=== PATIENT | male | born 1950 | race Caucasian/White ===

== ENCOUNTER 2024-10-25 13:18 | Emergency (ER) | payer SELFPAY | END 2024-10-25 17:46 | LOC: ERS 13:18 | DX: S09.90XA Unspecified injury of head, initial encounter (principal); I10 Essential (primary) hypertension; E78.5 Hyperlipidemia, unspecified; Z86.73 Personal history of transient ischemic attack (TIA), and cerebral infarction without residual deficits; Z79.899 Other long term (current) drug therapy; W05.0XXA Fall from non-moving wheelchair, initial encounter; Y92.129 Unspecified place in nursing home as the place of occurrence of the external cause | CPT/HCPCS: 70450; 72125 ==